=== PATIENT | female | born 1960 | race Caucasian/White ===

== ENCOUNTER 2018-01-16 08:40 | Day surgery (SDC) | payer MEDICAID ==
[2018-01-15 16:12] LABS: HEMATOCRIT 46.5 % (36.0-48.0); HEMOGLOBIN 15.5 g/dL (12-16); MCH 31.6 pg (26.0-34.0); MCHC 33.3 g/dL (31.0-37.0); MCV 94.9 fL (80.0-100.0); MEAN PLATELET VOLUME 9.6 fL (7.4-10.4); RBC 4.9 10x6/uL (4.00-5.40); RDW 13.1 % (11.5-14.5); WBC 9.3 10x3/uL (4.8-10.8)
[2018-01-15 16:39] LABS: CALC OSMOLALITY 284 mosm/kg (275-300); CALCIUM 8.6 mg/dL (8.5-10.1); CARBON DIOXIDE 30.4 mmol/L (21.0-32.0); CHLORIDE - SERUM 103 mmol/L (98-107); CREATININE - SERUM 0.8 mg/dL (0.6-1.3); GLUCOSE 117 mg/dL (74-106); POTASSIUM - SERUM 3.9 mmol/L (3.5-5.1); SODIUM 142 mmol/L (136-145); UREA NITROGEN 16 mg/dL (7-18); eGFR NON AFRICAN AMERICAN 78 mL/min (90-120)
[~2018-01-16] VITALS: Ht 172.7 cm; Wt 133.8 kg
--- NOTE | ~2018-01-16 | OP ---
PATIENT NAME: CYNTHIA BLANCAS MEDICAL RECORD: [id number] :60 LOCATION:D.OPS ADMISSION DATE: SURGEON: RAMAN MAO MD DATE OF OPERATION: 01/16/2018 PREOPERATIVE DIAGNOSIS: 1. Lateral meniscus tear. 2. Chondral defect. 3. Morbid obesity. POSTOPERATIVE DIAGNOSES: 1. 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 2. Morbid obesity. PROCEDURE: Arthroscopic partial lateral meniscectomy. SURGEON: Raman Mao MD ANESTHESIA: General. INTRAOPERATIVE COMPLICATIONS: None. SUMMARY OF PATHOLOGIC FINDINGS: The patient did not have a full-thickness cartilaginous defect at any point in the knee. Therefore, BioCartilage was not done. She did however have a very complex tear of the lateral meniscus, both posterior horn and anterior horn. The remainder of the joint was in very good condition including medial femoral condyle and patellofemoral joint. OPERATIVE SUMMARY IN DETAIL: After obtaining the appropriate preoperative orthopedic surgery consent as well as anesthetic consultation, evaluation, and clearance, the patient was brought to the operating room and placed on the operating table in supine position. After general laryngeal mask airway was administered, tourniquet was placed about the proximal aspect of the right lower extremity. Right lower extremity was then prepped and draped in routine sterile fashion. Leg was elevated, exsanguinated, and tourniquet was inflated to 350 mmHg. Routine inferolateral portal was established followed by superomedial portal and inferomedial portal. Diagnostic arthroscopy did reveal the above findings, most of which was the very badly torn meniscus. It had done some damage to the lateral femoral condyle, but at no point was it full thickness. A 3.5 full radius resector in conjunction with a meniscotome was utilized to debride the meniscus back to stable meniscal elements both anteriorly and posteriorly. Slight chondroplasty was done on the lateral femoral condyle, smoothing down few areas that were roughened. However, I again did not feel like it warranted BioCartilage as there was no full-thickness defect on this lateral femoral condyle. Having completed this, knee was insufflated with 30 cc of 0.25% Marcaine with epinephrine and 80 mg of Depo-Medrol. Arthroscopy portals were closed in routine interrupted fashion using 4-0 Prolene. Sterile dressings were applied. The patient was awakened and taken to the recovery room in stable condition. All final needle and sponge counts were correct. TRANSINT:[id number] Voice Confirmation ID: [id number] DOCUMENT ID: [id number] OPERATIVE REPORT [id number] CYNTHIA BLANCAS MD, RAMAN ALFARO at 1520 CC: [id number] DICTATION DATE: 01/16/18 1207 SPRAYER AUTOMATIC SPRAY MACHINE: 01/16/18 133[id number] [place] [address]
[~2018-01-16 08:40] MED LIST: ACCURETIC 10-121 TAB PO; LEVOTHYROXINE175 MCG PO; MOBIC7.5 MG PO; NORCO 7.5/325 T1 TA1 PO; NORVASC5 MG PO; PEPCID40 MG PO; VALIUM10 MG PO; VITAMIN D5000 UNIT PO
[2018-01-16 09:52] VITALS: BP 152/82; Ht 172.7 cm; Wt 133.8 kg
[2018-01-16] MEDS ORDERED: HYDROCODONE-APA1 TAB PO (12:09)
== END 2018-01-16 15:30 | disposition home or self-care (01) ==
LOC: D.OPS 08:40 → D.PAN 12:00 → D.OPS 12:30 → D.PAN 12:30 → D.OPS 13:25
PROVIDERS: Anesthesiology
DX: S83.271A Complex tear of lateral meniscus, current injury, right knee, initial encounter (principal); M94.261 Chondromalacia, right knee; E66.01 Morbid (severe) obesity due to excess calories; Z01.812 Encounter for preprocedural laboratory examination; Z68.41 Body mass index [BMI] 40.0-44.9, adult

== ENCOUNTER → 2021-03-03 08:37 | Outpatient (CLI) | payer MEDICAID ==
[2018-01-16 09:52] VITALS: BMI 44.9
[~2021-03-03 08:37] MED LIST changes: +HYDROCODONE-APA1 TAB PO
== END | disposition home or self-care (01) ==
LOC: D.NM 08:37
PROVIDERS: ATTEND Internal Medicine Gastroenterology
DX: R10.84 Generalized abdominal pain (principal); R11.2 Nausea with vomiting, unspecified